=== PATIENT | female | born 1960 | race Caucasian/White ===

== ENCOUNTER 2023-02-09 10:39 | Emergency (ER) | payer OTHER ==
[2023-02-09] MEDS ORDERED: Sodium Chloride 0.9% 10 ML Syringe FLUSH PRN (10:50)
[2023-02-09 11:22] LABS: BASOPHILS ABSOLUTE AUTO 0.02 K/mm3 (0.01-0.08); BASOPHILS PERCENT AUTO 0.2 % (0.1-1.2); EOSINOPHILS ABSOLUTE AUTO 0.12 K/mm3 (0.04-0.36); EOSINOPHILS PERCENT AUTO 1.3 (0.7-5.8); HEMOGLOBIN 11.9 gm/dl (11.2-15.7); IMMATURE GRAN ABSOLUTE AUTO 0.02 K/mm3 (0.00-0.10); IMMATURE GRAN PERCENT AUTO 0.2 % (<=1.0); LYMPHOCYTES ABSOLUTE AUTO 1.53 K/mm3 (1.18-3.74); LYMPHOCYTES PERCENT AUTO 16.6 % (19.3-51.7); MEAN CORPUSCULAR HEMOGLOBIN 32.8 pg (25.6-32.2); MEAN CORPUSCULAR HGB CONC 33.1 g/dl (32.2-35.5); MEAN CORPUSCULAR VOLUME 99.2 fl (79.4-94.8); MEAN PLATELET VOLUME 10.5 fl (9.4-12.3); MONOCYTES ABSOLUTE AUTO 0.97 K/mm3 (0.24-0.36); MONOCYTES PERCENT AUTO 10.5 % (4.7-12.5); NEUTROPHILS ABSOLUTE AUTO 6.58 K/mm3 (1.56-6.13); NEUTROPHILS PERCENT AUTO 71.2 % (34.0-71.1); PLATELET COUNT,PLT 72 K/mm3 (182-369); RED BLOOD CELL COUNT 3.63 M/mm3 (3.98-5.22); WHITE BLOOD CELL COUNT,WBC 9.24 K/mm3 (3.98-10.04)
[2023-02-09 11:33] LABS: APPEARANCE,URINE CLEAR (Clear); BILIRUBIN,URINE 1+ (Negative); COLOR,URINE DARK YELLOW (Yellow); GLUCOSE,URINE NEGATIVE (Negative); KETONES,URINE TRACE (Negative); LEUKOCYTE ESTERASE,URINE NEGATIVE (Negative); NITRITE,URINE NEGATIVE (Negative); OCCULT BLOOD,URINE TRACE-LYSED (Negative); PH,URINE 5.5 (5.0-8.0); PROTEIN,URINE 1+ (Negative); UROBILINOGEN,URINE 0.2 (0.2-1.0)
[2023-02-09 11:45] LABS: INR 1.17; PROTHROMBIN TIME 12.4 SECONDS (9.7-12.0)
[2023-02-09 11:46] LABS: PTT,PARTIAL THROMBOPLSTIN TIME 25.6 SECONDS (21.7-31.4)
[2023-02-09 11:47] LABS: BACTERIA,URINE FEW /hpf (FEW); MUCUS,URINE MODERATE /hpf (FEW); RBC,URINE 0-5 /hpf (0-5); RENAL EPITHELIAL CELLS,URINE 0-5 /hpf (0-5); SQUAMOUS EPITHELIAL CELLS,UR 0-5 /hpf (0-5); WBC,URINE 0-5 /hpf (0-5)
[2023-02-09 11:57] LABS: A/G RATIO 0.8 (1-2); ALBUMIN 2.8 g/dl (3.4-5.0); ANION GAP 11.8 (5-15); BILIRUBIN TOTAL 1.1 mg/dL (0.2-1.0); BUN/CREATININE RATIO 16.7 (14-18); CALCIUM 9.8 mg/dL (8.5-10.1); CREATININE 0.9 mg/dL (0.55-1.02); EST CRCL DRUG DOSING (CG) 45.22 mL/min; MAGNESIUM 1.6 mg/dL (1.8-2.4); POTASSIUM,K 3.8 mEq/L (3.5-5.1); PROTEIN TOTAL,TP 6.3 g/dl (6.4-8.2); TSH 2.691 uIU/mL (0.358-3.74)
[2023-02-09 12:23] LABS: SLIDE REVIEW ABNORMAL SMEAR
[2023-02-09] MEDS ORDERED: Magnesium Sulfate/Water 2 GM/50 ML BAG IV SCH (13:30)
== END 2023-02-09 15:40 | disposition home or self-care (01) ==
LOC: JD.ED 10:39
DX: C18.9 Malignant neoplasm of colon, unspecified (principal); E83.42 Hypomagnesemia; Z88.5 Allergy status to narcotic agent; Z87.891 Personal history of nicotine dependence
CPT/HCPCS: 36415; 71045; 80053; 81001; 83735; 83880; 84443; 84484; 85025; 85610; 85730; 93005; 96365; 96366; 99284; J3475